=== PATIENT | female | born 1995 | race Caucasian/White ===

== ENCOUNTER 2016-10-03 22:51 | Emergency (ER) | payer MEDICAID, OTHER ==
--- NOTE | 2016-10-03 23:44 | OBHP ---
Datetime: 10/03/2016 23:10 IP Adm Impression: Term, intrauterine IP Admit Plan: Observation/Evaluation; Discharge home Admit Comment, IP Provider: 21 yr at 38.6 wks GA by 1st tri US, JEFRY 10/11/16 presents to [facility] with complaint of lower abd pain 02/17. Denies vaginal bleeding, LOF. + movement. Reports routin e care with Dr. Agudelo from [facility]. Her last clinic visit was on 09/28/16, pt states s he was told she was 2cm dilated. Next Obgyn appt is scheduled for 10/05/16. Patient has no other fabricio rns or complaints at this time. care/course: negative 1st tri screen, GBS neg, B Pos, Antobody neg, HepBsAg neg, HIV neg, RPR neg, Rubella Immune, Gc/Ch neg/neg, Quantiferon neg, OBHx: 2 x at full term, 1 x SAB, 1 x TOP PMHx: none SurgHx: none SocHx: denies Etoh/smoking/drugs Meds: PNV Allergies: NKDA, seasonal allergies PE: VSS Cardiac: S1 S2 normal, no murmurs/rubs/gallops Lungs: CTABL Abd: gravid, nontender Ext: no edema SVE: cervix dilated 1 cm/ effacement 40%/station -2 Monitoring: FHR 140 bpm, moderate variability 6-25bpm, accelerations 15x15, no decels, Categ ory I A: IUP at 38.6wks GA, not in active labor, intact membranes P: -Observe and evaluate in [facility] - monitoring x 30 min, if reactive NST, discharge home with follow up as scheduled 10/05/[address] Magnus Real M.D. PGY1 Patient was seen with the resident I agree with the notes. Patient in latent labor will discharge home with labor precautions and kick counts patient to follow up with Tessa Espino this week Pelvic Type - PN: Adequate Extremities - PN: Normal Abdomen - PN: Normal Back - PN: Normal Lungs - PN: Normal Heart - PN: Normal Thyroid - PN: Normal Neurologic - PN: Normal HEENT - PN: Normal General - PN: Normal Presentation-Admit: Vertex FHR - Baseline A Provider: 140 Gestation - Est Wks by US: 38.6 EGA AdmitDate IP: 39.0 Vital Signs Provider: Reviewed; Within Normal Limits IP Chief Complaint: Uterine contractions NICHD Variability Prov Fetus A: Moderate 6-25bpm NICHD Accel Fetus A IP Provider: 15X15 FHR Category Provider Fetus A: Category I NICHD Decel Fetus A IP Provider: None Dilatation, Provider: 1 Effacement, Provider: 40 Station, Provider: -2 Genitourinary Exam: Normal DTRs - PN: Normal
[2016-10-04 00:44] VITALS: BMI 30.7
== END 2016-10-04 00:45 | disposition home or self-care (01) ==
LOC: H.EROB2 22:51
DX: O47.1 False labor at or after 37 completed weeks of gestation (principal); Z3A.38 38 weeks gestation of pregnancy

== ENCOUNTER 2016-10-07 20:51 | Emergency (ER) | payer OTHER ==
[2016-10-07 21:47] VITALS: BMI 30.9
--- NOTE | 2016-10-07 22:24 | OBHP ---
Datetime: 10/07/2016 21:56 IP Adm Impression: Term, intrauterine IP Admit Plan: Observation/Evaluation; Discharge home Admit Comment, IP Provider: 21 yr at 39.3 wks GA by 1st tri US, JEFRY 10/11/16 presents to [facility] with complaint of vaginal leakage unsure if it is d/c or srom. Denies ctxs. + movement. Reports routine care with Dr. Agudelo from [facility]. She state on her last pelvic exam she was told she was 2cm. care/course: negative 1st tri screen, GBS neg, B Pos, Antobody neg, HepBsAg neg, HIV neg, RPR neg, Rubella Immune, Gc/Ch neg/neg, Quantiferon neg, OBHx: 2 x at full term, 1 x SAB, 1 x TOP- D_C PMHx: none SurgHx: none SocHx: denies Etoh/smoking/drugs; +THC in 03/25 Meds: PNV Allergies: NKDA, seasonal allergies Pelvic Type - PN: Adequate Extremities - PN: Normal Abdomen - PN: Normal Lungs - PN: Normal Heart - PN: Normal Neurologic - PN: Normal HEENT - PN: Normal General - PN: Normal Presentation-Admit: Vertex FHR - Baseline A Provider: 130 Membranes, Provider: Intact Contraction Comments Provider: no Comments, ACOG Physical Exam: SSE: profuse nonodorous white d/c no pooling in vault Nitrazine Provider: Negative EGA AdmitDate IP: 39.3 Vital Signs Provider: Within Normal Limits IP Chief Complaint: Suspected ruptured membranes NICHD Variability Prov Fetus A: Moderate 6-25bpm NICHD Accel Fetus A IP Provider: 15X15 FHR Category Provider Fetus A: Category I NICHD Decel Fetus A IP Provider: None Dilatation, Provider: 2 Effacement, Provider: 30 Station, Provider: -2 Genitourinary Exam: Normal
== END 2016-10-07 22:00 | disposition home or self-care (01) ==
LOC: H.EROB2 20:51
DX: O26.893 Other specified pregnancy related conditions, third trimester (principal); Z3A.39 39 weeks gestation of pregnancy

== ENCOUNTER 2016-10-09 00:16 | Inpatient (IN) | payer OTHER ==
[2016-10-09] MEDS ORDERED: Lactated Ringer's 1,000 ML IV SCH ×2 (01:15→01:45)
[2016-10-09] MEDS ORDERED: Fentanyl/Bupivacaine HCl 250 ML EPI ONE (01:42)
[2016-10-09 01:43] LABS: BASO % 0.2 % (0.0-2.0); EOS # 0.3 K/uL (0.0-0.7); EOS % 2.1 % (0.0-4.0); LYMPH # 2.1 K/uL (1.0-4.3); LYMPH % 13.7 % (20.0-40.0); MEAN CORPUSCULAR HEMOGLOBIN 28.4 pg (27.0-31.0); MEAN CORPUSCULAR HGB CONC 32.6 g/dL (33.0-37.0); MEAN PLATELET VOLUME 11.2 fl (7.2-11.7); MONO # 0.9 K/uL (0.0-0.8); MONO % 5.8 % (0.0-10.0); NEUT # 11.8 K/uL (1.8-7.0); NEUT % 78.2 % (50.0-75.0); RED CELL DISTRIBUTION WIDTH 14.2 % (11.5-14.5); WHITE BLOOD COUNT 15.2 K/uL (4.8-10.8)
--- NOTE | 2016-10-09 06:00 | OBADHP ---
Datetime: 10/09/2016 01:20 Admit Comment, IP Provider: 21 yo, f, at 39.3 wks GA by 1st tri US with JEFRY 10/11/16 presents c/o uterine Ctx started last night 9:30 pm intermittent, every 5 minutes and vaginal spotting . Den ies LOF, dysuria, fever, headache, chest pain, SOB. Reports + FM. Patient reports routine c are with Dr. Agudelo from [facility]. Last Us 09/19 EFW: 6lb 1 oz, placenta post POBHx: 2 x at full term, 1 x SAB, 1 x TOP- D_C PMHx: PTSD, Anxiety SurgHx: none SocHx: denies Etoh/smoking/drugs; +THC in 03/25 Meds: PNV Allergies: NKDA, seasonal allergies GBS: neg ABO-Rh: B+ Antibody: neg RPR: neg 1st T HIV: neg 1 st T HBsAg: neg Rubella: immune GC/C: neg PPD: N/A TDap: no Flu: no Quantiferon neg Assessment/Plan: 21 yo, f, at 39.3 wks GA. Active labor -Admit L _ D -Continous monitoring -Iv fluids -epidural -CBC, Type/screen, HIV, RPR Renee Garner PGY1 Addendum by Dr Samuel attending: I have evaluated the patient independently and I agree with the ab ove. Patient in labor and to be admitted FHR - Baseline A Provider: 137 Contraction Comments Provider: Q2-3 min Vital Signs Provider: Reviewed; Within Normal Limits IP Chief Complaint: Uterine contractions NICHD Variability Prov Fetus A: Moderate 6-25bpm NICHD Accel Fetus A IP Provider: 15X15 FHR Category Provider Fetus A: Category I NICHD Decel Fetus A IP Provider: None Dilatation, Provider: 3 Effacement, Provider: 80 Station, Provider: -2 EGA AdmitDate IP: 39.5 IP Adm Impression: Term, intrauterine IP Admit Plan: Admit to unit Datetime: 10/09/2016 01:11 Pelvic Type - PN: Adequate Extremities - PN: Normal Abdomen - PN: Normal Back - PN: Normal Breast - PN: Normal Lungs - PN: Normal Heart - PN: Normal Thyroid - PN: Normal Neurologic - PN: Normal HEENT - PN: Normal General - PN: Normal Membranes, Provider: Intact Comments, ACOG Physical Exam: Bedside Us: Vertex Pool Provider: Negative Genitourinary Exam: Normal DTRs - PN: Normal Datetime: 10/07/2016 21:56 Presentation-Admit: Vertex Nitrazine Provider: Negative Datetime: 10/03/2016 23:10 Gestation - Est Wks by US: 38.6
--- NOTE | 2016-10-09 06:06 | OBPN ---
Datetime: 10/09/2016 05:59 IP Progress Impression: Normal progression of labor IP Informed Consent Obtain: Vaginal Delivery IP Procedures: Sterile Vag Exam IP Progress Plan: Continue present management Contraction Comments Provider: q 3-4 min FHR - Baseline A Provider: 140 IP Progress Note Comment: Patient evaluated comfortable s/p epidural VE=6/80/-1 [id number] mod celestino, +accels, no decels TOCO=taiwo q 3-4 min A/P 1. Patient progressing in labor. Now 6cm and progressing on her own 2. CEFM and TOCO 3. Re-evaluate as needed Vital Signs Provider: Reviewed; Within Normal Limits NICHD Variability Prov Fetus A: Moderate 6-25bpm Dilatation, Provider: 6 Effacement, Provider: 80 Station, Provider: -1 NICHD Decel Fetus A IP Provider: Early Datetime: 10/09/2016 01:20 NICHD Accel Fetus A IP Provider: 15X15 FHR Category Provider Fetus A: Category I Datetime: 10/09/2016 01:11 Pool Provider: Negative Membranes, Provider: Intact Datetime: 10/07/2016 21:56 Nitrazine Provider: Negative Presentation-Admit: Vertex Datetime: 10/03/2016 23:10 Gestation - Est Wks by US: 38.6
[2016-10-09] MEDS ORDERED: Lidocaine 1% Inj (20ml) ONE (08:12)
--- NOTE | 2016-10-09 09:00 | OBDS ---
DELIVERY PERSONNEL Delivery Doctor: Pedro Cox MD Resident: Jim Fitzpatrick MD MATERNAL INFORMATION Delivery Anesthesia: Epidural Medications in Delivery: 20 units Pitocin in 1000 ml LR Estimated Blood Loss (ml): 200 Placenta Cultured: No Maternal Complications: None Provider Comments: Delivery Note: AP Dia.5wks; labor PP Diag: Same Procedure: ; Placenta delivered spontaneously and intact. OB: ORossetos REsident: Jim Hanna pgy1 Anesth: epidural; dr. lyn FINDINGS: viable female; 9_9;3285g 7lb 4oz EBL: 200cc Neon remained in br with pt no complications LABOR SUMMARY EDC: 10/11/2016 00:00 No. Babies in Womb: 1 Attempted: No Labor Anesthesia: Epidural LABOR INFORMATION Oxytocin: N/A Group B Beta Strep: Negative Steroids Given: None Reason Steroids Not Administered: Not Applicable MEMBRANES Amniotic Fluid Color: Clear STAGES OF LABOR Stage 3 hrs: 0 Stage 3 min: 2 VAGINAL DELIVERY Episiotomy: None Laceration Type: None Initial Vag Sponge Count: 5 Final Vag Sponge Count: 5 Initial Vag Sharps Count: 0 Final Vag Sharps Count: 0 Sponge Count Correct: Yes Sharps Count Correct: N/A BABY A INFORMATION Delivery Date/Time: 10/09/2016 08:44 Method of Delivery: Vaginal Born in Route : No : N/A Forceps: N/A Vacuum Extraction: N/A Shoulder Dystocia : No SHOULDER DYSTOCIA BABY A Infant Delivery Date/Time: 10/09/2016 08:44 PRESENTATION/POSITION BABY A Presentation: Breech Cephalic Presentation: Vertex Vertex Position: Left Occipital Anterior Breech Presentation: N/A PLACENTA INFORMATION BABY A Placenta Delivery Time : 10/09/2016 08:46 Placenta Method of Delivery: Spontaneous Placenta Status: Delivered INFANT INFORMATION BABY A Gestational Age at Delivery: 39.5 Gestational Status: Term Infant Outcome : Liveborn Condition : Stable Sex: Female IDENTIFICATION/MEDS BABY A ID Band Location: Left Leg; Left Arm Sensor Applied: No WEIGHT/LENGTH BABY A Birthweight (gms): 3285 Infant Weight (lb): 7 Weight (oz): 4 CORD INFORMATION BABY A No. Cord Vessels: 3 Nuchal Cord : N/A Cord Blood Taken: Yes Suction: Mouth; Nose ASSESSMENT BABY A Complications: None
[2016-10-09] MEDS ORDERED: Oxycodone/Acetaminophen 5/325 mg Tab PO PRN (11:02)
[2016-10-09] MEDS: Oxycodone/Acetaminophen 5/325 mg Tab PO PRN (20:07)
[2016-10-10 06:53] LABS: HEMATOCRIT 35.6 % (34.0-47.0); MEAN CELL VOLUME 87.1 fl (81.0-99.0); MEAN CORPUSCULAR HEMOGLOBIN 28.5 pg (27.0-31.0); MEAN CORPUSCULAR HGB CONC 32.7 g/dL (33.0-37.0); RED CELL DISTRIBUTION WIDTH 14.3 % (11.5-14.5); WHITE BLOOD COUNT 12.9 K/uL (4.8-10.8)
--- NOTE | 2016-10-10 09:17 | OBPPN ---
Datetime: 10/10/2016 06:23 PP Pain Prov: Within normal limits PP Nausea Prov: Denies PP Flatus Prov: Yes PP BM Prov: Yes PP Heart Prov: Normal PP Lungs Prov: Normal PP Abdomen/Uterus Prov: Normal PP Lochia Prov: Normal PP Vulva/Perineum Prov: Normal PP Extremities Prov: Normal PP C/S Incision Prov: Not Applicable PP Progress Prov: Normal PP Comments Phys Exam Prov: Uterus: firm below umbilicus PP Impression Prov: Normal progression PP Plan Prov: Continue present management PP Progress Note Prov: 21 y/o seen and examined at bedside. Patient had uneventful overn ight. Patient reports mild pelvic pain controlled w/ pain meds. OOB/Ambulating w/o dizziness.breast feeding and bottle feeding baby..Tolerating PO diet well. Lochia is less than menses in volume. Voi ding freely w/ no blood noted. Reports + flatus and 1 bowel movement yesterdayt. Denies fevers, chi lls, n/v/d, CP/SOB, lightheadedness and calf pain. Assessment: 21 y/o s/p 10/09/16 @ 08:44 am tolerating pain w/ medication, tolerati ng oral intake, adequate urine output, doing well on PPD1. Plan: - Ibuprofen 600 mg 1 tab Q6h PO prn for mild pain. -Encourage breast feeding and ambulation. Renee Garner PGY1 The patient was seen with the resident I agree with note. Patient is day #1 encourage a mbulation, regular diet, analgesics as needed, anticipate discharge tomorrow Vital Signs Provider PP: Reviewed; Within Normal Limits
--- NOTE | 2016-10-10 10:02 | CP.PCM.CON ---
History of Present Illness - History of Present Illness History of Present Illness: Psychiatry Consult- Retail Analyst attempted to speak with the patient due to open dyfas case. Patient refused to talk with remote mortgage underwriter and stated with a negative tone "I don't have nothing to say to you." Patient was tearful, irritable and unwilling to have any conversation. At this point, can not evaluate the patient due to her unwillingness to talk. Unable to assess if the patient is safe to be around her child. Past Patient History - Infectious Disease Hx of Infectious Diseases: None - Tetanus Immunizations Tetanus Immunization: Up to Date (last year) - Past Social History Smoking Status: Never Smoked - CARDIAC Hx Cardiac Disorders: No - PULMONARY Hx Respiratory Disorders: No - NEUROLOGICAL Hx Neurological Disorder: No - HEENT Hx HEENT Problems: No - RENAL Hx Chronic Kidney Disease: No - ENDOCRINE/METABOLIC Hx Endocrine Disorders: No - HEMATOLOGICAL/ONCOLOGICAL Hx Blood Disorders: No - INTEGUMENTARY Hx Dermatological Problems: No - MUSCULOSKELETAL/RHEUMATOLOGICAL Hx Musculoskeletal Disorders: No - GASTROINTESTINAL Hx Gastrointestinal Disorders: No - GENITOURINARY/GYNECOLOGICAL Hx Urinary Tract Infection: Yes - PSYCHIATRIC Hx Anxiety: Yes Hx Depression: Yes Hx Substance Use: No - SURGICAL HISTORY Other/Comment: D & C - 06/12/14 - ANESTHESIA Hx Anesthesia: Yes Hx Anesthesia Reactions: No Hx Malignant Hyperthermia: No Meds Allergies/Adverse Reactions: Allergies Allergy/AdvReac Type Severity Reaction Status Date / Time No Known Allergies Allergy Verified 10/09/16 01:57 - Medications Medications: Current Medications Ibuprofen (Motrin Tab) 600 mg PO Q6 PRN PRN Reason: Pain, Mild (1-3) Last Admin: 10/10/16 00:33 Dose: 600 mg Oxycodone/Acetaminophen (Percocet 5/325 Mg Tab) 1 tab PO Q4 PRN PRN Reason: Pain, moderate (4-7) Stop: 10/12/16 11:03 Last Admin: 10/09/16 20:07 Dose: 1 tab Oxycodone/Acetaminophen (Percocet 5/325 Mg Tab) 2 tab PO Q4 PRN PRN Reason: Pain, severe (8-10) Stop: 10/12/16 11:03 Sennosides (Senokot Tab) 17.2 mg PO HS [facility] Last Admin: 10/09/16 21:55 Dose: 17.2 mg Results - Labs Result Diagrams: 10/10/16 06:33 Labs: Laboratory Results - last 24 hr 10/09/16 10/09/16 10/10/16 01:38 13:53 06:33 WBC 12.9 H RBC 4.09 Hgb 11.6 L Hct 35.6 MCV 87.1 MCH 28.5 MCHC 32.7 L RDW 14.3 Plt Count 109 L Urine Opiates Screen Negative Urine Methadone Screen Negative Ur Barbiturates Screen Negative Ur Phencyclidine Scrn Negative Ur Amphetamines Screen Negative U Benzodiazepines Scrn Negative U Oth Cocaine Metabols Negative U Cannabinoids Screen Negative RPR Nonreactive
[2016-10-10] MEDS: Oxycodone/Acetaminophen 5/325 mg Tab PO PRN (21:01)
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
--- NOTE | 2016-10-19 17:24 | OBHP ---
Datetime: 10/09/2016 05:59 FHR - Baseline A Provider: 140 Contraction Comments Provider: q 3-4 min Vital Signs Provider: Reviewed; Within Normal Limits NICHD Variability Prov Fetus A: Moderate 6-25bpm NICHD Decel Fetus A IP Provider: Early Dilatation, Provider: 6 Effacement, Provider: 80 Station, Provider: -1 Datetime: 10/09/2016 01:20 IP Adm Impression: Term, intrauterine IP Admit Plan: Admit to unit Admit Comment, IP Provider: 21 yo, f, at 39.3 wks GA by [address] [place] [address] US with JEFRY 10/11/16 presents c/o uterine Ctx started last night 9:30 pm intermittent, every 5 minutes and vaginal spotting . Den ies LOF, dysuria, fever, headache, chest pain, SOB. Reports + FM. Patient reports routine c are with Dr. Agudelo from [facility]. Last 09/19 EFW: 6lb 1 oz, placenta post POBHx: 2 x at full term, 1 x SAB, 1 x TOP- D_C PMHx: PTSD, Anxiety SurgHx: none SocHx: denies Etoh/smoking/drugs; +THC in 03/25 Meds: PNV Allergies: NKDA, seasonal allergies GBS: neg ABO-Rh: B+ Antibody: neg RPR: neg 1st T HIV: neg 1 st T HBsAg: neg Rubella: immune GC/C: neg PPD: N/A TDap: no Flu: no Quantiferon neg Assessment/Plan: 21 yo, f, at 39.3 wks GA. Active labor -Admit L _ D -Continous monitoring -Iv fluids -epidural -CBC, Type/screen, HIV, RPR Renee Garner PGY1 Addendum by Dr Samuel attending: I have evaluated the patient independently and I agree with the ab ove. Patient in labor and to be admitted EGA AdmitDate IP: 39.5 IP Chief Complaint: Uterine contractions NICHD Accel Fetus A IP Provider: 15X15 FHR Category Provider Fetus A: Category I Datetime: 10/09/2016 01:11 Pelvic Type - PN: Adequate Extremities - PN: Normal Abdomen - PN: Normal Back - PN: Normal Breast - PN: Normal Lungs - PN: Normal Heart - PN: Normal Thyroid - PN: Normal Neurologic - PN: Normal HEENT - PN: Normal General - PN: Normal Membranes, Provider: Intact Comments, ACOG Physical Exam: Bedside Us: Vertex Pool Provider: Negative Genitourinary Exam: Normal DTRs - PN: Normal
== END 2016-10-11 13:35 | disposition home or self-care (01) | DRG 373 ==
LOC: H.EROB2 00:16 → H.L&D 01:14 → H.OB/GYN 11:55
PROVIDERS: ADMIT Obstetrics & Gynecology; ATTEND Obstetrics & Gynecology
PROC: 10E0XZZ Delivery of Products of Conception, External Approach (ICD-10-PCS; principal; 2016-10-09)
PROC: 4A1HXCZ Monitoring of Products of Conception, Cardiac Rate, External Approach (ICD-10-PCS; 2016-10-09)
DX: O62.8 Other abnormalities of forces of labor (principal); O99.344 Other mental disorders complicating childbirth; F43.10 Post-traumatic stress disorder, unspecified; Z37.0 Single live birth; Z3A.40 40 weeks gestation of pregnancy; Z87.440 Personal history of urinary (tract) infections

== ENCOUNTER 2018-08-28 19:17 | Emergency (ER) | payer MEDICAID, OTHER ==
[2018-08-28 19:17] VITALS: BMI 30.9
[2018-08-28 19:31] VITALS: BP 127/78; PULSE 90; RESP 16; TEMP 98.6; O2SAT 100
--- NOTE | 2018-08-28 19:47 | ED PDOC ---
Syncope/Near Syncope/Dizziness Time Seen by Provider: 08/28/18 19:37 Chief Complaint (Nursing): Syncope History Per: Patient Onset/Duration Of Symptoms: Days (4) Current Symptoms Are (Timing): Intermittent Episodes Associated Symptoms Preceding Syncopal Episode: Lightheadedness Seizure Or Post-ictal Symptoms: None Fall Associated With With Symptoms: Yes Additional Complaint(s): Multiple syncopal episodes this week with latest episode occurring 2 hrs prior to arrival. Pt states she was lightheaded prior to event and was told by witness that she had low heart rate. Denies chest pain or palpitations. Had similar episodes earlier this week. Sustained fall today with injury to right side of face. Previous injury to neck when falling earlier this week. No seizure activity reported. Past Medical History Vital Signs: Last Vital Signs Temp 98.6 F 08/28/18 19:24 Pulse 90 08/28/18 19:24 Resp 16 08/28/18 19:24 BP 127/78 08/28/18 19:24 Pulse Ox 100 08/28/18 19:24 - Medical History PMH: Anxiety, Depression, Post Traumatic Stress Disorder Denies: Bipolar Disorder, Personality Disorder, Chronic Kidney Disease, Schizophrenia - Family History Family History: States: Unknown Family Hx - Immunization History Hx Tetanus Toxoid Vaccination: Yes (2 yrs ago) - Allergies Allergies/Adverse Reactions: Allergies Allergy/AdvReac Type Severity Reaction Status Date / Time No Known Allergies Allergy Verified 08/28/18 19:24 Review of Systems ROS Statement: Except As Marked, All Systems Reviewed And Found Negative Cardiovascular: Negative for: Chest Pain, Palpitations Neurological: Positive for: Dizziness Physical Exam - Reviewed Nursing Documentation Reviewed: Yes Vital Signs Reviewed: Yes - Physical Exam Appears: Positive for: Non-toxic, No Acute Distress Head Exam: Negative for: NORMAL INSPECTION (Ecchymosis right zygomatic area, rosalba nt. No palp fx) Skin: Positive for: Normal Color, Warm, DRY Eye Exam: Positive for: EOMI, PERRL ENT: Positive for: Normal ENT Inspection Neck: Positive for: Painless ROM. Negative for: Normal (Abrasion to right lateral neck. No spinal tenderness or deformity) Cardiovascular/Chest: Positive for: Regular Rate, Rhythm Respiratory: Positive for: CNT, Normal Breath Sounds Gastrointestinal/Abdominal: Positive for: Normal Exam, Soft Back: Positive for: Normal Inspection Extremity: Positive for: Normal ROM Neurological/Psych: Positive for: Awake, Alert, Normal Tone. Negative for: Motor/Sensory Deficits - Laboratory Results Result Diagrams: 08/28/18 19:57 08/28/18 19:57 - ECG O2 Sat by Pulse Oximetry: 100 Medical Decision Making Medical Decision Making: Pt left before treatment complete. Would not wait for full workup including CT Disposition - Clinical Impression Clinical Impression: Syncope - Disposition Disposition: Left W/O Treatment Disposition Time: 21:21 Condition: FAIR Forms: [facility] (Faroese)
[2018-08-28 20:07] LABS: BASO # 0.1 K/uL (0.0-0.2); BASO % 0.8 % (0.0-2.0); EOS # 0.2 K/uL (0.0-0.7); EOS % 2.7 % (0.0-4.0); HEMOGLOBIN 14.2 g/dL (12.0-16.0); LYMPH % 22.4 % (20.0-40.0); MEAN CORPUSCULAR HEMOGLOBIN 27.4 pg (27.0-31.0); MEAN CORPUSCULAR HGB CONC 32.6 g/dL (33.0-37.0); MEAN PLATELET VOLUME 11.4 fl (7.2-11.7); MONO # 0.7 K/uL (0.0-0.8); MONO % 8.5 % (0.0-10.0); NEUT # 5.7 K/uL (1.8-7.0); NEUT % 65.6 % (50.0-75.0); NRBC % 0.1 % (0.0-0.0); RBC 5.18 Mil/uL (3.80-5.20); WHITE BLOOD COUNT 8.7 K/uL (4.8-10.8)
[2018-08-28 20:18] LABS: ALB/GLOB RATIO 1.4 (1.0-2.1); ALBUMIN 4.9 g/dL (3.5-5.0); ALT/SGPT 24 U/L (9-52); AST/SGOT 27 U/L (14-36); BLOOD UREA NITROGEN 11 mg/dl (7-17); CALCIUM 9.7 mg/dL (8.4-10.2); GFR NON-AFRICAN AMERICAN > 60
[2018-08-28] MEDS ORDERED: Potassium Chloride 20 mEq ER Tab PO ONE (20:49)
--- NOTE | 2018-08-29 22:30 | CARD ---
APPROVED REPORT Date of service: 08/28/2018 EKG Measurement Heart [id number] <Conclusion> Normal sinus rhythm with sinus arrhythmia Normal ECG
== END 2018-08-28 21:23 | disposition left against medical advice (07) ==
LOC: H.ER 19:17
DX: R55 Syncope and collapse (principal)